=== PATIENT | male | born 1935 | race Caucasian/White ===

== ENCOUNTER → 2018-02-18 08:17 | Outpatient (CLI) | payer MEDICARE, OTHER ==
[~2018-02-18] VITALS: Ht 180.3 cm; Wt 88.6 kg
--- NOTE | ~2018-02-18 | OP ---
PATIENT NAME: ANTONY LAMAS MEDICAL RECORD: [id number] :39 LOCATION:D.CAT ADMISSION DATE: SURGEON: LIANNE DASILVA MD DATE OF OPERATION: 02/18/2018 PROCEDURES: 1. PTCA stent RCA. 2. Intravascular ultrasound. 3. Left heart catheterization. 4. Selective coronary angiography. 5. Vein graft angiography. 6. ARTHUR angiography. INDICATION: Angina and coronary artery disease. PROCEDURE IN DETAIL: After informed consent was obtained and after a detailed description of risks, benefits as well as alternative therapies, the patient elected to proceed with angiogram and angioplasty. The right femoral area was prepped and draped in normal sterile fashion. Right femoral artery was cannulated via modified Seldinger technique with placement of 6-Wolof sheath. All catheters exchanged through the sheath. FINDINGS: Left ventriculogram was performed in standard 30-degree MUÑOZ view reveals preserved cardiac wall motion, ejection fraction 50%. SELECTIVE CORONARY ANGIOGRAPHY: 1. Left main has no significant angiographic disease. 2. The left anterior descending is totally occluded. 3. There is an LAD lesion. 4. The left circumflex is totally occluded. 5. ARTHUR to the LAD is widely patent. 6. Finger circumflex is widely patent. 7. The right coronary has previously placed stents. There is a greater than 70% stenosis proximally confirmed by intravascular ultrasound. PTCA STENT OF THE RCA: The stent used is 3.5 x 22 mm Andrew. Result was 0% residual stenosis. 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 TRANSINT:[id number] Voice Confirmation ID: [id number] DOCUMENT ID: [id number] LIANNE DASILVA MD at 1711 CC: [id number] DICTATION DATE: 02/18/18 1105 PNEUMATIC TESTER: 02/18/18 1153 DEP CLI 02/18/18 [place] [id number] [place] [id number]
--- NOTE | ~2018-02-18 | HEMODYNAMI ---
PATIENT:ANTONY LAMAS MEDICAL RECORD: [id number] : 39 LOCATION:D.CAT ADMISSION DATE: 02/18/18 Generatedon:02/18/201811:06 Patient name: ANTONY LAMAS Patient #: [id number] SSN: : 1935 Date of study: 02/18/2018 Page: Of Hemodynamic Procedure Report Patient Data Patient Demographics Procedure consent was obtained First Name: ANTONY Gender: Male Last Name: CYDNEY : 1935 Patient #: [id number] Age: 82 year(s) Race: Unknown Additional ID: [id number] Contact details [address]: [address] [place] [address] [address] State: [place] City: [place] Zip code: [address] Past Medical History Allergies Allergen Reaction Date Comments Reported Other allergy 02/18/2018 PCN, Sulfa Admission Admission Data Admission Date: 02/18/2018 Admission Time: 8:17 Admit Source: Other Procedure Procedure Types Cath Procedure Diagnostic Procedure LHC LHC w/Coronaries w/Grafts FFR/IVUS Intra-Coronary IVUS Initial Sedation Charges Moderate Sedation up to 15 minutes PCI Procedure Coronary Stent Coronary Stent Initial Procedure Description Procedure Date Procedure Date: 02/18/2018 Procedure Start Time: 10:40 Procedure End Time: 11:03 Procedure Staff Name Function Sal Ordonez MD Performing Physician Steve Smith RT Monitor Bertrand Hendricks RT Scrub Jordin Wilson RN Nurse Procedure Data Cath Procedure Fluoroscopy Diagnostic fluoroscopy Total fluoroscopy Time: 7.5 time: 7.5 min min Diagnostic fluoroscopy Total fluoroscopy dose: dose: 391.45 mGy 391.45 mGy Contrast Material Contrast Material Type Amount (ml) Isovue 300 110 Entry Location Entry Primary Successful Side Size Upsize Upsize Entry Closure Succes sful Closure Location (Fr) 1 (Fr) 2 (Fr) Remarks Device Remarks Femoral Right 5 Fr 6 Fr Exoseal artery Short Estimated blood loss: 10 ml Diagnostic catheters Device Type Used For End Catheter Placement MULTIPACK Pigtail 5 Fr Procedure catheter MULTIPACK JL 4.0 5Fr Procedure catheter MULTIPACK 3DRC 5Fr Procedure catheter DIAGNOSTIC AR 2 MOD 5 Fr Procedure catheter ([id number]) Procedure Complications No complications Procedure Medications Medication Administration Route Dosage Oxygen etCO2 Nasal cannula 2 l/min Heparin Flush Bag added to field 2 bags (1000units/500ml NS) 0.9% NaCl I.V. 100 ml/hr Fentanyl I.V. 50 mcg Versed I.V. 1 mg Fentanyl I.V. 50 mcg Versed I.V. 1 mg Heparin Bolus I.V. 4000 units Integrilin (Bolus I.V. 7.9 ml 2mg/ml) Integrilin (Bolus wasted 2.1 ml 2mg/ml) Plavix P.O. 600 mg Hemodynamics Rest Heart Rate: 86 (bpm) Snapshots Pre Cath Intra NCS Post Cath Vital Signs Time Heart Resp SPO2 etCO2 NIBP (mmHg) Rhythm Pain Sedation Rate (ipm) (%) (mmHg) Status Level (bpm) 10:28:32 91 17 98 0 180/115(150) NSR 0 (11) 10(A) , No pain 10:32:48 86 17 96 37.2 163/90(135) NSR 0 (11) 10(A) , No pain 10:37:00 84 16 98 14.1 145/74(111) NSR 0 (11) 10(A) , No pain 10:41:06 82 17 100 41.7 134/78(113) NSR 0 (11) 9(A) , No pain 10:45:12 83 17 99 42.4 131/71(108) NSR 0 (11) 9(A) , No pain 10:49:20 85 16 100 17.8 132/65(109) NSR 0 (11) 9(A) , No pain 10:53:25 83 17 100 32 119/66(94) NSR 0 (11) 9(A) , No pain 10:57:31 80 17 100 39.4 122/64(98) NSR 0 (11) 9(A) , No pain 11:01:35 84 16 100 38.7 131/71(100) NSR 0 (11) 10(A) , No pain Medications Time Medication Route Dose Verified Delivered Reason Notes Effectiveness by by 10:33:28 Oxygen etCO2 2 Sal Brenner Per physician Nasal l/min Mery Wilson RN cannula 10:33:37 Heparin Flush added 2 Sal Brenner used for Bag to bags Mery Wilson RN procedure (1000units/500ml field NS) 10:33:51 0.9% NaCl I.V. 100 Sal Brenner Per physician ml/hr Mery Wilson RN 10:38:00 Fentanyl I.V. 50 Sal Brenner for sedation mcg Mery Wilson RN 10:38:07 Versed I.V. 1 mg Sal Brenner for sedation Mery Wilson RN 10:50:40 Fentanyl I.V. 50 Sal Brenner for sedation mcg Mery Wilson RN 10:50:44 Versed I.V. 1 mg Sal Brenner for sedation Mery Wilson RN 10:51:23 Heparin Bolus I.V. 4000 Sal Brenner for units Mery Wilson RN anticoagulation 10:51:38 Integrilin I.V. 7.9 Sal Brenner for (Bolus 2mg/ml) ml Mery Wilson RN antiplatelet therapy 10:51:48 Integrilin wasted 2.1 Sal Brenner for (Bolus 2mg/ml) ml Mery Wilson RN antiplatelet therapy 11:02:05 Plavix P.O. 600 Sal Brenner for mg Mery Wilson RN antiplatelet therapy Procedure Log Time Note 10:10:22 Jordin Wilson RN sent for patient. Start room use. 10:19:44 Informed consent obtained and on chart 10:19:47 Admit Source: Other 10:20:11 Diagnostic Cath status Elective 10:20:26 Time tracking: Regular hours (M-F 7:00 - 5:00) 10:20:29 Plan of Care:Hemodynamics will remain stable., Cardiac rhythm will remain stable., Comfort level will be maintained., Respiratory function will remain adequate., Patient/ family verbilizes understanding of procedure., Procedure tolerated without complication., Recovers from procedure without complications.. 10:20:33 Patient received from Pre/Post Procedure Room to CCL 3 Alert and oriented. Tansferred to table in Supine position. 10:20:33 Warm blankets applied, and brooke hugger turned on for patient comfort. 10:20:34 Correct patient and procedure confirmed by team. 10:20:34 ECG and BP/O2 sat monitors applied to patient. 10:20:36 Pre-procedure instructions explained to patient. 10:20:36 Pre-op teaching completed and patient verbalized understanding. 10:20:37 Family in waiting room. 10::38 Patient NPO since Midnight. 10::25 Vital chart was started 10:33:28 Oxygen 2 l/min etCO2 Nasal cannula was administered by Jordin Wilson RN; Per physician; 10:33:37 Heparin Flush Bag (1000units/500ml NS) 2 bags added to field was administered by Jordin Wilson RN; used for procedure; 10:33:51 0.9% NaCl 100 ml/hr I.V. was administered by Jordin Wilson RN; Per physician; ::25 Baseline sample Acquired. ::28 Rhythm: sinus rhythm 10:34:30 Full Disclosure recording started 10:34:41 Patient allergic to Other allergyPCN, Sulfa 10:34:43 Is the patient allergic to Iodine/contrast media? No. 10:34:44 Is patient on blood thinner?Yes 10:34:46 Patient diabetic? Yes. 10:34:50 Previous problem with sedation/anesthesia? No ? 10:34:51 Snore? Yes 10:34:52 Sleep apnea? No 10:34:53 Deviated septum? No 10:34:54 Opens mouth fully? Yes 10:34:54 Sticks out tongue? Yes 10:34:58 Airway obstruction? No ? 10:35:01 Dentures? Yes in tight 10:35:05 Pre procedure: right dorsailis pedis pulse 2+ Normal; easily identifiable; not easily obliterated 10:35:07 Patient pain scale 0/10 ?. 10:35:13 IV patent on arrival in left forearm with 0.9% NaCl at O. 10:35:43 Lab results completed and on chart. 10:35:47 Right groin area was prepped with chlora-prep and draped in sterile fashion 10:35:49 Alarms reviewed by R. N. 10:35:49 Sharps counted by scrub and verified by R.N. 10:35:51 Use device set Femoral Dx 10:35:52 ACIST Syringe (45962) opened to sterile field. 10:35:52 Bag Decanter (2002S) opened to sterile field. 10:35:53 Medline Cath Pack ([id number]) opened to sterile field. 10:35:54 ACIST Hand Control (11568) opened to sterile field. 10:35:54 ACIST Manifold (21092) opened to sterile field. 10:35:55 Tegaderm 4 x 4 (1626W) opened to sterile field. 10:35:56 SHEATH Prelude 5Fr 0.035 (ITY-7H-21-035) opened to sterile field. 10:35:58 DIAGNOSTIC WIRE .035 260cm J wire (014983) opened to sterile field. 10:36:04 Physician arrived 10:36:05 --------ALL STOP TIME OUT------ 10:36:05 Final Timeout: patient, procedure, and site verified with staff and physician. All members of the team are in agreement. 10:36:07 Right groin site verified by team. 10:36:09 Physical assessment completed. ASA score P 2 - A patient with mild systemic disease as per Sal Ordonez MD. 10:36:11 Sedation plan: IV Moderate Sedation Medication:Versed, Fentanyl 10:38:00 Fentanyl 50 mcg I.V. was administered by Jordin Wilson RN; for sedation; 10:38:07 Versed 1 mg I.V. was administered by Jordin Wilson RN; for sedation; 10:40:07 Zero performed for pressure channel P1 10:40:10 DIAGNOSTIC Multipack 5Fr catheter set (AZ3868) opened to sterile field. 10:40:39 Procedure started. 10:40:42 Local anesthetic to right femoral artery with Lidocaine 2% by Sal Ordonez MD.INITIAL ACCESS ONLY 10:41:51 A 5 Fr sheath was inserted into the Right Femoral artery 10:41:55 A MULTIPACK Pigtail 5 Fr catheter was advanced over the wire and used for Procedure. 10:41:57 LV gram done using MUÑOZ 10:42:00 Injector settings: Ml/sec: 10, Volume: 20, 10:42:25 EF : 50 % 10:42:27 Catheter exchanged over wire. 10:42:36 A MULTIPACK JL 4.0 5Fr catheter was advanced over the wire and used for Procedure. 10:42:40 LCA angiography performed. 10:43:44 Catheter exchanged over wire. 10:43:53 A MULTIPACK 3DRC 5Fr catheter was advanced over the wire and used for Procedure. 10:44:20 ARTHUR to LAD angiography performed. 10:45:13 SVG to Circ angiography performed. 10:46:10 Catheter exchanged over wire. 10:46:18 A DIAGNOSTIC AR 2 MOD 5 Fr catheter ([id number]) was advanced over the wire and used for Procedure. 10:48:24 RCA angiography performed. 10:48:24 Catheter removed. 10:48:43 CHOICE PT Extra Support 182cm wire ([id number]) opened to sterile field. 10:48:44 INFLATOR Merit BasixCompak (TO5478) opened to sterile field. 10:48:44 SHEATH Prelude 6Fr 0.035 (JND-7H-75-035) opened to sterile field. 10:48:54 GUIDE 6FR MB 2 catheter (LA6MB2) opened to sterile field. 10:49:09 Sheath upsized to a 6 Fr Short. 10:49:15 6 Fr MB2 guide catheter was inserted over the wire 10:50:26 choice PT wire advanced. 10:50:40 Fentanyl 50 mcg I.V. was administered by Jordin Wilson RN; for sedation; 10:50:41 [place] IVUS Catheter (35184I) opened to sterile field. 10:50:44 Versed 1 mg I.V. was administered by Jordin Wilson RN; for sedation; 10:51:05 CHOICE PT Extra Support 182cm wire ([id number]) opened to sterile field. 10:51:12 Wire removed. damaged. 10:51:16 choice pt wire advanced. 10:51:23 Heparin Bolus 4000 units I.V. was administered by Jordin Wilson RN; for anticoagulation; 10:51:28 Wire advanced across lesion. 10:51:38 Integrilin (Bolus 2mg/ml) 7.9 ml I.V. was administered by Jordin Wilson RN; for antiplatelet therapy; 10:51:48 Integrilin (Bolus 2mg/ml) 2.1 ml wasted was administered by Jordin Wilson RN; for antiplatelet therapy; 10:52:32 IVUS catheter advanced over wire. 10:53:57 IVUS catheter removed over wire. 10:54:11 IVUS Catheter malfunction. 10:54:16 [place] IVUS Catheter (07588W) opened to sterile field. 10:54:20 IVUS catheter advanced over wire. 10:56:00 IVUS pass to RCA lesion performed. 10:56:04 IVUS catheter removed over wire. 10:56:57 Inflate balloon Inflation number: 1 A EUPHORA 3.5 x 20 Balloon ([id number]) was prepped and advanced across the Prox RCA, then inflated to 17 THERESA for 0:10 (min:sec). 10:57:15 Inflation number: 2 The EUPHORA 3.5 x 20 Balloon ([id number]) was reinflated across the Prox RCA, to 17 THERESA for 0:10 (min:sec). 10:57:33 Balloon removed over the wire. 10:59:13 Place stent Inflation Number: 3 A ANASTACIO RX 3.5 x 22 stent ([id number]) was prepped and advanced across the Prox RCA. The stent was deployed at 21 THERESA for 0:10 (min:sec). 10:59:37 Stent catheter was removed intact over wire. 10:59:39 Wire removed. 10:59:40 Guide catheter removed. 10:59:44 EXOSEAL 6Fr (EX600) opened to sterile field. 10:59:51 Sheath removed intact; hemostasis achieved with Exoseal to the Right Femoral artery. 10:59:53 Procedure ended.(Physican Out) 11:02:05 Plavix 600 mg P.O. was administered by Jordin Wilson RN; for antiplatelet therapy; 11:02:13 Fluoroscopy time 07.50 minutes. 11:02:19 Flurop Dose total: 391.45 11:02:19 Fluoroscopy dose: 391.45 mGy 11:02:23 Contrast amount:Isovue 300 110ml. 11:02:25 Sharps counted by scrub and verified by R.N. 11:02:25 Insertion/operative site no bleeding no hematoma. 11:02:28 Post-op/insertion site Right Femoral artery dressed using a 4 x 4 and Tegaderm. 11:02:32 Post right femoral artery:stable, soft, clean and dry 11:02:33 Post Procedure Pulses reassessed and unchanged 11:02:36 Post-procedure physical assessment completed. ASA score P 2 - A patient with mild systemic disease as per Sal Ordonez MD. 11:02:37 Post procedure rhythm: unchanged. 11:02:39 Estimated blood loss: 10 ml 11:02:40 Post procedure instruction explained to patient.Patient verbalizes understanding. 11:02:41 Patient needs reinforcement of post procedure teaching. 11:03:13 Procedure type changed to Cath procedure, Diagnostic procedure, LHC, LHC w/Coronaries w/Grafts, FFR/IVUS, Intra-Coronary IVUS Initial, Sedation Charges, Moderate Sedation up to 15 minutes, PCI procedure, Coronary Stent, Coronary Stent Initial 11:03:36 Procedure and supply charges have been captured, reviewed, submitted and are correct. 11:03:38 Procedure Complication : No complications 11:03:39 Vital chart was stopped 11:03:40 See physician's report for complete and final results. 11:03:41 Report given to Pre/Post Procedure Room. 11:03:43 Patient transfered to Pre/Post Procedure Room with Stretcher. 11:03:55 Procedure ended. 11:03:55 Full Disclosure recording stopped 11:03:59 End room use (Document Last) Intervention Summary Intervention Notes Time ActionType Lesion and Equipment Used Action# Pressure Duration Attributes 10:56:57 Inflate Prox RCA EUPHORA 3.5 x 1 17 00:10 balloon 20 Balloon ([id number]) 10:57:15 Reinflate Prox RCA EUPHORA 3.5 x 2 17 00:10 balloon 20 Balloon ([id number]) 10:59:13 Place stent Prox RCA ANASTACIO RX 3.5 x 3 21 00:10 22 stent ([id number]) Device Usage Item Name Manufacture Quantity Catalog Number Hospital Part Current Minimal Lot# / Charge Number Stock Stock Serial# Code ACIST Syringe Acist 1 11873 033780 588201 226349 20 (52271) [employer] Bag Decanter Microtek 1 2001S 523106 44478 944791 5 (2001S) Medical Inc. Medline Cath Cardinal 1 [id number] 951012 69045 127227 5 Pack Health ([id number]) ACIST Hand Acist 1 83416 663232 993656 362978 5 Control (12053) [employer] Inc ACIST Manifold Acist 1 85023 911229 218673 534562 5 (26937) [employer] Inc Tegaderm 4 x 4 3M 1 1626W 795050 458532 999604 5 (1626W) SHEATH Prelude Merit 1 FPV-9U-76-035 262336 488211 569580 5 5Fr 0.035 Medical (ERK-9T-20-035) DIAGNOSTIC WIRE [place] 1 668799 279231 470708 569227 30 .035 260cm J wire (530331) MULTIPACK Cardinal 1 289136 5 Pigtail 5 Fr Health catheter MULTIPACK JL Cardinal 1 192151 5 4.0 5Fr Health catheter MULTIPACK 3DRC Cardinal 1 072709 5 5Fr catheter Health DIAGNOSTIC Cardinal 1 DX2334 218411 89444 991863 30 Multipack 5Fr Health catheter set (ME2269) DIAGNOSTIC AR 2 Cardinal 1 274875T 350766 771656 314725 20 MOD 5 Fr Health catheter (273373J) CHOICE PT Extra Luther 2 [id number] 251465 379106 924226 5 Support 182cm Scientific wire ([id number]) INFLATOR Merit Merit 1 CU7379 110503 952998 061235 15 BasixComkyk Medical (ZS2994) SHEATH Prelude Merit 1 TNX-4T-97-35 598249 3625413 489533 5 6Fr 0.035 Medical (QOR-6O-02-035) GUIDE 6FR MB 2 Medtronic 1 LA6MB2 415287 60958 904673 1 catheter (LA6MB2) [place] 2 16309C 753612 568279 663787 8 [place] IVUS Catheter (03244K) EUPHORA 3.5 x Medtronic 1 [id number] 473693 811231 139180 5 [id number] 20 Balloon (OWR0807G) ANASTACIO RX 3.5 x Medtronic 1 [id number] 111180 5895798 327360 5 [id number] 22 stent ([id number]) EXOSEAL 6Fr Cardinal 1 EX600 405318 524154 837155 10 (EX600) Health Signature Audit [place] Stage Time Signature Unsigned Intra-Procedure 02/18/2018 Steve Smith 11:06:07 AM RT(R) Signatures Monitor : Steve Smith RT Signature : Date : Time : [facility] [address] [place] [address]
[~2018-02-18 08:17] MED LIST: ACTOS30 MG PO; ALPHA LIPOIC ACID PO; ASCORBIC ACID500 MG PO; ASPIRIN EC81 M1 PO; ASPIRIN325 MG PO; BAYER CHEWABLE81 MG PO; BETAPACE 80 MG80 MG PO; CALCIUM PO; CINNAMON500 MG PO; CRESTOR5 MG PO; FISH OIL 1,0001 CA1 PO; GARLIC1 CAP PO; GLIMEPIRIDE1 MG PO; GLUCOSAMINE & C1 CAP PO; KRILL OIL PO; LOPRESSOR25 MG PO; MAGNESIUM PO; MULTAQ400 MG PO; MULTIPLE VITAMI1 TA1 PO; OCUVITE TABLET1 TA1 PO; PLAVIX75 MG PO; PRILOSEC20 MG PO; SYNTHROID100 MCG PO; TRIGLIDE160 MG PO; VITAMIN B COMPL1 TAB PO; VITAMIN B-121000 MCG PO; ZESTRIL40 MG PO; ZINC PO
[2018-02-18 08:59] VITALS: BP 161/83; Ht 180.3 cm; Wt 88.6 kg
[2018-02-18 09:08] LABS: BASOPHILS 0.6 % (0-2); EOSINOPHILS 4.6 % (0-7); HEMATOCRIT 40.6 % (42.0-54.0); HEMOGLOBIN 13.9 g/dL (13.5-17.5); IMMATURE GRANULOCYTES 0.2 % (0-5); LYMPHOCYTES 17.8 % (15-50); MCH 32.9 pg (26.0-34.0); MCHC 34.2 g/dL (31.0-37.0); MCV 96.2 fL (80.0-100.0); MEAN PLATELET VOLUME 10.2 fL (7.4-10.4); MONOCYTES 13.1 % (2-11); NEUTROPHILS 63.7 % (40-80); RBC 4.22 10x6/uL (4.20-6.10); RDW 13.4 % (11.5-14.5); WBC 5.3 10x3/uL (4.8-10.8)
[2018-02-18 09:15] LABS: CALC OSMOLALITY 285 mosm/kg (275-300); CALCIUM 9.4 mg/dL (8.5-10.1); CARBON DIOXIDE 31.4 mmol/L (21.0-32.0); CHLORIDE - SERUM 99 mmol/L (98-107); GLUCOSE 133 mg/dL (74-106); POTASSIUM - SERUM 3.7 mmol/L (3.5-5.1); SODIUM 139 mmol/L (136-145); UREA NITROGEN 29 mg/dL (7-18); eGFR NON AFRICAN AMERICAN 76 mL/min (90-120)
[2018-02-18 09:19] LABS: PLATELET COUNT 125 10x3/uL (130-400)
== END | disposition home or self-care (01) ==
LOC: D.CATH 08:17
PROVIDERS: Internal Medicine Interventional Cardiology
DX: I25.119 Atherosclerotic heart disease of native coronary artery with unspecified angina pectoris (principal); Z01.812 Encounter for preprocedural laboratory examination
CPT/HCPCS: 92978; 93459; C9600

== ENCOUNTER → 2021-01-03 11:03 | Outpatient (CLI) | payer MEDICARE, OTHER ==
[2018-02-18 08:59] VITALS: BMI 27.2
--- NOTE | ~2021-01-03 | EC ---
PATIENT:ANTONY LAMAS DATE OF SERVICE: 01/03/21 SEX: M MEDICAL RECORD: [id number] DATE OF : 39 LOCATION:D.[facility] AGE OF PATIENT: 85 ADMISSION DATE: 01/03/21 REFERRING PHYSICIAN: INTERPRETING PHYSICIAN: DAXA WILSON MD ECHOCARDIOGRAM REPORT ECHO CHARGES 4 ECHO COMPLETE Date: 01/03/21 CLINICAL DIAGNOSIS: CAD/HEART MURMUR HX OF CABG ECHOCARDIOGRAPHIC MEASUREMENTS (adult normal given) AC root (d.<3.7cm) 3.5 cm LV Septum d (<1.2 cm> 1.4 cm Valve Excursion 0.9 cm LV Septum (systole) 1.8 cm Left Atria (s.<4.0cm> 4.8 cm LVPW d(<1.2cm) 1.4 cm RV (d.<2.3cm) 4.5 cm LVPW (sytole) 1.9 cm LV diastole(<5.6CM) 3.6 cm MV E-F(>70mm/sec) cm LV systole 1.8 cm LVOT Diameter 1.7 cm MV exc.(>10mm) 1.7 cm Est.ejection fraction (50-75%) % DOPPLER: LVIT cm/sec A 47.0 cm/sec E 103.0 cm/sec LA cm/sec RVSP 31 mmHg LVOT 68 cm/sec AOP1/2T m/s Asc. Ao 157 cm/sec RVOT 63 cm/sec RA cm/sec PA 98 cm/sec AV Gradient Peak 9.90 mmHg AV Mean 5.56 mmHg AV Area 2.5 cm MV Gradient Peak 8.10 mmHg MV Mean 2.85 mmHg MV Area cm COMMENTS: Grocery Deliverer: 2 GREYSON RODRIGUEZ Art Glass Setter: 3 Dr. Vargas TAPE# PACS Pericardial Effusion N DATE OF SERVICE: Adequate 2D, color flow imaging, spectral Doppler, and M-Mode. FINDINGS: LVH is present. LV internal dimensions are normal. Wall motion is normal. EF is greater than or equal to 55%. Aortic valve is tricuspid. No evidence of stenosis by Doppler interrogation. Left atrium is dilated at 4.8 cm. Mitral valve shows no prolapse. Trace MR. Right side is grossly normal. Mild TR. ECHOCARDIOGRAM REPORT [id number] ANTONY LAMAS TRANSINT:[id number] Voice Confirmation ID: [id number] DOCUMENT ID: [id number] DAXA WILSON MD CC: [id number] DICTATION DATE: 01/03/21 1502 X RAY NURSE: 01/03/212047 [place] [id number] [place] [id number]
== END | disposition home or self-care (01) ==
LOC: D.HCCECHO 11:03
PROVIDERS: ATTEND Internal Medicine Interventional Cardiology
DX: I25.10 Atherosclerotic heart disease of native coronary artery without angina pectoris (principal); I48.91 Unspecified atrial fibrillation